=== PATIENT | female | born 1975 | race Two or more races ===

== ENCOUNTER 2025-01-28 10:41 | Emergency (ER) | payer OTHER ==
[~2025-01-28] VITALS: Ht 170.2 cm; Wt 70.8 kg
[2025-01-28] MEDS ORDERED: TIROSINT75 MCG (11:05)
[2025-01-28] MEDS ORDERED: HYDROCODONE/CHLORPHEN P-STIREX 5 ML ML PO STA (11:25)
[2025-01-28 12:04] LABS: BASO % 1.0 % (0.1-1.2); EOS # 0.07 (0.04-0.54); EOS % 1.3 % (0.7-7.0); LYMPH # 0.92 (1.18-3.74); LYMPH % 17.6 % (19.3-53.1); MEAN PLATELET VOLUME 11.20 fl (9.4-12.4); MONO # 0.46 (0.24-0.82); MONO % 8.8 % (4.7-12.5); NEUT # 3.70 (1.56-6.13); NEUT % 70.9 % (34.0-71.1); RED CELL DISTRIBUTION WIDTH 12.7 % (11.6-14.4)
[2025-01-28 12:08] LABS: COVID-19 AG NEGATIVE (NEGATIVE)
== END 2025-01-28 13:05 | disposition home or self-care (01) ==
LOC: ER 10:41
DX: J10.1 Influenza due to other identified influenza virus with other respiratory manifestations (principal); Z20.822 Contact with and (suspected) exposure to COVID-19; E03.8 Other specified hypothyroidism; Z91.018 Allergy to other foods